=== PATIENT | male | born 1965 | race Asian ===

== ENCOUNTER 2017-08-17 07:48 | Day surgery (SDC) | payer OTHER ==
[~2017-08-17] VITALS: Ht 167.6 cm; Wt 86.2 kg
[~2017-08-17 07:48] MED LIST: METF500C PO; ROSU10TA PO; VALS80 PO
== END 2017-08-17 09:40 | disposition home or self-care (01) ==
LOC: ORSCMMR 07:48 → ORD 09:00 → ORSCMMR 09:40
PROVIDERS: Internal Medicine Gastroenterology
PROC: 0DBN8ZX Excision of Sigmoid Colon, Via Natural or Artificial Opening Endoscopic, Diagnostic (ICD-10-PCS; principal; 2017-08-17 09:00)
DX: Z12.11 Encounter for screening for malignant neoplasm of colon (principal); K63.5 Polyp of colon; E11.9 Type 2 diabetes mellitus without complications; I10 Essential (primary) hypertension; E78.00 Pure hypercholesterolemia, unspecified; Z79.84 Long term (current) use of oral hypoglycemic drugs; Z79.899 Other long term (current) drug therapy
CPT/HCPCS: 82947; 88305; J7120